=== PATIENT | male | born 1950 | race Caucasian/White ===

== ENCOUNTER → 2018-06-16 | Outpatient (CLI) | payer OTHER ==
[~2018-06-16] MED LIST: AMLO10TA3 PO; ASPI81TA28 PO; ATOR-22 PO; LOSA1TAB38 PO; METO25TA3 PO; SILD100T PO
--- NOTE | 2018-06-16 15:35 | DIAGNOSTIC IMAGING REPORT ---
CHEST 2 VIEWS ROUTINE CLINICAL HISTORY: Z01.818 preoperative evaluation COMPARISON STUDY: 09/25/2008 FINDINGS: Chronic granulomatous change. Mild emphysematous change. No acute abnormalities identified. Diaphragms are smooth but slightly flattened. IMPRESSION: Chronic change. No acute process. The above report was generated using voice recognition software. It may contain grammatical, syntax or spelling errors. Electronically signed by: Norm Trinidad M.D. 06/16/2018 3:33 PM Dictated Date/Time: 06/16/2018 3:32 PM
== END | disposition home or self-care (01) ==
LOC: C.RAD1850 15:13
PROVIDERS: ATTEND Family Medicine
DX: Z01.818 Encounter for other preprocedural examination (principal)

== ENCOUNTER 2018-07-12 10:29 | Inpatient (IN) | payer OTHER ==
[2018-06-17 08:06] VITALS: BMI 31.0
[2018-06-24 09:39] VITALS: BMI 31.0
--- NOTE | 2018-06-24 10:11 | PAT Medication Instructions ---
Service Date Jun 24, 2018. Current Home Medication List Amlodipine (Norvasc), 10 MG PO HS Aspirin (Aspirin Ec), 81 MG PO QAM Atorvastatin (Lipitor), 1 TAB PO HS Losartan Potassium (Cozaar), 1 TAB PO QAM Metoprolol Succ (Toprol Xl) (Toprol-Xl), 25 MG PO BID Sildenafil Citrate (Viagra), 1 TAB PO prn Medication Instructions For Your Scheduled Surgery -Check with your surgeon for instructions: Aspirin (Aspirin Ec), 81 MG PO QAM - Hold the following medications the morning of surgery: Losartan Potassium (Cozaar), 1 TAB PO QAM Sildenafil Citrate (Viagra), 1 TAB PO prn - Take the following medications the morning of surgery with a sip of water: Metoprolol Succ (Toprol Xl) (Toprol-Xl), 25 MG PO BID - Take the following medications as scheduled the night before surgery: Amlodipine (Norvasc), 10 MG PO HS Atorvastatin (Lipitor), 1 TAB PO HS Metoprolol Succ (Toprol Xl) (Toprol-Xl), 25 MG PO BID Sildenafil Citrate (Viagra), 1 TAB PO prn (if needed) If you have any questions please call us at [phone] or [phone] or [phone]
[2018-06-24 11:06] LABS: BASO % 0.3 %; BASO ABS # 0.02 K/uL (0-0.2); EOS % 1.5 %; HEMATOCRIT 38.1 % (42-52); HEMOGLOBIN 13.2 g/dL (14.0-18.0); IG# 0.04 K/uL (0.00-0.02); LYMPH % 20.8 %; LYMPH ABS # 1.36 K/uL (1.2-3.4); MEAN CORPUSCULAR HEMOGLOBIN 30.5 pg (25-34); MEAN CORPUSCULAR HGB CONC 34.6 g/dl (32-36); MEAN PLATELET VOLUME 11.1 fL (7.4-10.4); MONO % 7.2 %; MONO ABS # 0.47 K/uL (0.11-0.59); NEUT % 69.6 %; NEUT ABS # 4.56 K/uL (1.4-6.5); PLATELET COUNT 214 K/uL (130-400); RED CELL DISTRIBUTION WIDTH CV 13.4 % (11.5-14.5); WHITE BLOOD COUNT 6.55 K/uL (4.8-10.8)
[~2018-07-12] VITALS: Ht 177.8 cm; Wt 97.3 kg
[2018-07-12] VITALS (7 sets, daily range): BP systolic 108–150; BP diastolic 67–96; PULSE 65–84; TEMP 36.4–36.8; O2SAT 93–99; Ht 177.8 cm; Wt 97.3 kg
[~2018-07-12 10:29] MED LIST changes: +ATROPINE SULFATE 0.1 MG/ML 5ML SYR IV PRN; +CEFAZOLIN 2000MG IV PUSH 15 ML IV SCH; +EpHEDrine SULFATE INJ 50 MG/ML AMP IV PRN; +HEPARIN SOD 5000 UNIT/0.5 ML CARP SQ SCH; +HYDROmorphone INJ 2 MG/ML SYR/VIAL IV PRN; +LACTATED RINGER'S 1000ML 1,000 ML IV SCH; +ONDANSETRON INJ 2 MG/ML 2 ML VIAL IV PRN; +PHENYLEPHRINE 100MCG/ML 5ML SYR IV PRN
[2018-07-12] MEDS ORDERED: FAMO20TA11 PO (10:56)
--- NOTE | 2018-07-12 11:16 | History & Physical Bridge Note ---
H&P Re-Evaluation Bridge Note: I have examined the patient, reviewed the History & Physical and in the interval since the performance of the History & Physical I have noted the following changes of clinical significance: No changes noted
[2018-07-12] MEDS ORDERED: BUPIVACAINE 0.5 % 5 MG/1 ML PF 10ML VIAL ONE (11:37)
[2018-07-12] MEDS ORDERED: MIDAZOLAM HCL 1 MG/ML 2ML VIAL ONE (11:38)
[2018-07-12] MEDS ORDERED: NEOSTIGMINE METHYLSULFATE 5 MG/5 ML SYR ONE (11:38)
[2018-07-12] MEDS ORDERED: FENTANYL CITRATE INJ 50 MCG/1 ML 2 ML VIAL ONE (11:38)
[2018-07-12] MEDS ORDERED: LIDOCAINE HCL 2% 2 ML VIAL (20MG/ML) ONE (11:38)
[2018-07-12] MEDS ORDERED: HYDROmorphone INJ 2 MG/ML SYR/VIAL ONE (11:38)
[2018-07-12] MEDS ORDERED: ONDANSETRON INJ 2 MG/ML 2 ML VIAL ONE ×2 (11:38→14:38)
[2018-07-12] MEDS ORDERED: DEXAMETHASONE SOD INJ 4 MG/ML VIAL ONE (11:38)
[2018-07-12] MEDS ORDERED: GLYCOPYRROLATE INJ 0.2 MG/ML VIAL ONE ×2 (11:38→14:38)
[2018-07-12] MEDS ORDERED: PROPOFOL IV EMULSION 10 MG/ML 20 ML VIAL ONE (11:38)
[2018-07-12] MEDS ORDERED: BELLADONNA/OPIUM SUPP 60 MG SUPP PR ONE ×2 (12:25→13:34)
[2018-07-12] MEDS ORDERED: ACETAMINOPHEN 1000 MG/100 ML IV IV ONE (13:33)
[2018-07-12] MEDS ORDERED: KETAMINE HCL INJ 50 MG/ML 10 ML VIAL ONE (13:33)
[2018-07-12] MEDS ORDERED: PHENYLEPHRINE 100MCG/ML 5ML SYR ONE (14:38)
[2018-07-12] MEDS ORDERED: FLOSEAL HEMOSTATIC MATRIX 10ML TOP ONE (14:39)
[2018-07-12] MEDS ORDERED: ROCURONIUM BROMIDE 10 MG/ML 5 ML VIAL ONE (14:52)
[2018-07-12] MEDS ORDERED: EpHEDrine SULFATE 50MG/5ML SYR ONE (15:09)
[2018-07-12] MEDS ORDERED: ONDANSETRON INJ 2 MG/ML 2 ML VIAL IV PRN (15:45)
[2018-07-12] MEDS ORDERED: KETOROLAC TROMETHAMINE 15 MG/ML VIAL IV. PRN (15:45)
[2018-07-12] MEDS ORDERED: MoRPHine SULFATE 2 MG/ML CARP IV PRN (15:45)
[2018-07-12] MEDS ORDERED: ACETAMINOPHEN 325 MG TAB PO PRN (15:45)
[2018-07-12] MEDS ORDERED: MoRPHine SULFATE 4 MG/ML 1 ML CARP\\VIAL IV PRN (15:45)
[2018-07-12] MEDS ORDERED: ACETAMINOPHEN/CODEINE 300/30MG TAB PO PRN (15:45)
--- NOTE | 2018-07-12 15:45 | [facility] Operative Report ---
Operative Report Operative Date Jul 12, 2018. Pre-Operative Diagnosis Prostate cancer Post-Operative Diagnosis Prostate cancer Procedure(s) Performed Robot Assisted Laparoscopic Radical Retropubic Prostatectomy with lymph node dissection Surgeon Dr. Vicente Campuzano MD [employer] Surgeon(s) Abdiel Eddy PA-C Estimated Blood Loss 100ml Specimens Permanent Specimens A. Romelia-prostatic fat B. Right pelvic lymph node C. Left pelvic lymph node D. Prostate and seminal vessicles E. Bladder neck margin Anesthesia Type General Complication(s) none Disposition yes Recovery Room / PACU Description of Procedure The patient was identified in the preoperative holding area, appropriate informed consents were reviewed and completed, and he was transported to the operating suite. Subcutaneous heparin was administered in the pre-operative holding area. Upon arrival in the operating suite, he received appropriate antibiotics and general anesthesia. He was positioned in dorsal lithotomy, a B& O suppository was inserted after digital rectal exam, and he was prepped and draped in standard fashion. A Jones catheter was inserted in the sterile field. There was some challenge advancing the catheter, so an 18F coude catheter was used. A Veress needle was passed per umbilicus with uniform insufflation of the abdomen to 15mmHg. He was placed in steep Trendelenburg position. A periumbilical incision was then made to accommodate a 12mm Visiport with 10mm 0degree laparoscope. Inspection of the abdomen was carried out, and there was no evidence of traumatic entry or injury secondary to the Veress needle. After confirming a clear anterior abdominal wall, ports were subsequently placed in standard robotic prostatectomy fashion without incident. To begin the robotic portion of the case, the left lateral aspect of the sigmoid was mobilized off of the left pelvic side wall to allow the pouch of Alfredo to be appropriately visualized. The medial umbilical ligaments were then controlled with bipolar electrocautery just inferior to the umbilicus. Following cauterization, they were divided utilizing monopolar cautery. A peritoneal incision was carried from this location to the medial aspect of the internal inguinal rings bilaterally with care to avoid opening through the ring. This incision was concluded when the vas deferens was reached. Dissection of the bladder and prostate off of the posterior aspect of the pubic arch was completed allowing full visualization of the prostate. The fat overlying the prostate was removed en bloc and passed off the table as a specimen labeled "periprostatic fat". The endopelvic fascia was cleared during this portion of the procedure, and subsequently opened - first on the right and then the left. The incision through the endopelvic fascia began near the prostate-bladder junction and was carried to the apex with extreme care to preserve all lateral levator musculature as well as the periurethral musculature and sphincter complex. The puboprostatic ligaments were thinned slightly bilaterally before placing a 0-Vicryl figure of 8 stitch around the DVC. The lymph node dissection was then conducted. External iliac vessels were identified on the pelvic side wall. The packet of fat and lymphatic tissue that resides just under the iliac vein was elevated and off of the vein with a split and roll technique. I then performed the same procedure around the iliac artery. The packet was dissected laterally to the circumflex vein and distally to the obturator nerve which was preserved. The proximal aspect of the packet was carried towards the bifurcation of the iliac vessels. A combination of monopolar and bipolar cautery were used to assist with control. The same procedure was conducted on the contralateral side. After completing the dissection, the packets were collected and passed off of the table as specimens labeled "pelvic lymph nodes". My attention then returned to the prostate, with identification of the bladder neck aided by gentle traction on the Jones catheter and lateral to medial pressure at the presumed level of the bladder neck with the robotic instruments. An anterior cystotomy was made, the Jones balloon deflated and the catheter guided through the incision to allow anterior retraction. I attempted to preserve maximal bladder neck musculature as I circumferentially dissected around the bladder neck. After incision through the posterior aspect of the mucosa, the dissection was carried through detrusor muscle until the bilateral ampullae of the vasa were identified. These were elevated and dissected for approximately 4 cm before being transected. I then progressed to dissect the left side seminal vesicle and then the right-sided seminal vesicle. Of note the dissection of the SVs was relatively unremarkable without a significant inflammatory effect around the SVs. Following dissection of the SVs , the prostate was elevated and performed a posterior dissection. The left side dissected far easier than the right side, but I was able to complete a full posterior dissection. An incision in the lateral prostatic fascia was then made bilaterally to facilitate control of the vascular pedicles. The pedicles were skeletonized and controlled with a combination of bipolar electrocautery and the vessel sealer device, as the patient's preoperative pathology suggests high-grade disease with high risk for extraprostatic extension and perineural invasion. The apical attachments of the prostate were remaining at that stage. The DVC was divided with bipolar electrocautery. Romelia-prostatic tissue incised with sharp dissection and monopolar cautery. Maximal urethral length was preserved before dividing the urethra sharply. The prostate was entirely freed at that point, and collected in an EndoCatch bag before being moved out of the field of vision. Hemostasis was confirmed and anastomosis of the bladder and urethra was completed utilizing a double armed V- Lock stitch. A new Jones catheter was inserted and the anastomosis tested with irrigation. There was no evidence of leak. FloSeal coagulant was placed around the anastomosis. A Jose style stitch was placed bilaterally to functionally marsupialize the lymph node dissection. The robot was undocked, the specimen extracted through expansion of the romelia- umbilical camera port. The fascia was closed with a series of 0-PDS figure of 8 stitches. The right accounts receivable assistant port was closed in two layers - with a figure of 8 0-Vicryl to reapproximate the fascia followed by 4-0 Monocryl to close the skin. Monocryl was used to close all other skin incisions. All wounds were dressed with Dermabond. The case was concluded and the patient taken to the PACU in stable condition. Of note, Abdiel Eddy was present and scrubbed as an accounts receivable assistant throughout the case. I attest to the content of the Intraoperative Record and any orders documented therein. Any exceptions are noted below.
--- NOTE | 2018-07-12 16:27 | Anesthesiology Progress Note ---
Anesthesia Post Op Note Date & Time Jul 12, 2018 at 16:27 Vital Signs Pain Intensity: 0 Vital Signs Past 12 Hours Date Time Temp Pulse Resp B/P (MAP) Pulse Ox O2 Delivery O2 Flow Rate FiO2 07/12/18 16:15 69 14 135/93 99 Oxymask 10 07/12/18 16:05 81 15 173/99 100 Oxymask 10 07/12/18 15:55 36.0 78 19 154/95 94 Oxymask 10 07/12/18 10:58 36.6 65 16 150/96 97 Room Air Notes Mental Status: alert / awake / arousable, participated in evaluation Pt Amnestic to Procedure: Yes Nausea / Vomiting: adequately controlled Pain: adequately controlled Airway Patency, RR, SpO2: stable & adequate BP & HR: stable & adequate Hydration State: stable & adequate Anesthetic Complications: no major complications apparent
[2018-07-12 17:17] LABS: BASO % 0.1 %; BASO ABS # 0.01 K/uL (0-0.2); HEMATOCRIT 40.2 % (42-52); HEMOGLOBIN 13.7 g/dL (14.0-18.0); IG# 0.08 K/uL (0.00-0.02); LYMPH % 5.5 %; LYMPH ABS # 0.68 K/uL (1.2-3.4); MEAN CELL VOLUME 89.5 fL (80-100); MEAN CORPUSCULAR HEMOGLOBIN 30.5 pg (25-34); MEAN PLATELET VOLUME 10.6 fL (7.4-10.4); MONO % 1.2 %; MONO ABS # 0.15 K/uL (0.11-0.59); NEUT % 92.6 %; NEUT ABS # 11.44 K/uL (1.4-6.5); PLATELET COUNT 184 K/uL (130-400); RED CELL DISTRIBUTION WIDTH CV 13.5 % (11.5-14.5); RED CELL DISTRIBUTION WIDTH SD 44.1 fL (36.4-46.3); WHITE BLOOD COUNT 12.36 K/uL (4.8-10.8)
[2018-07-12 17:19] LABS: MEAN CORPUSCULAR HGB CONC 34.1 g/dl (32-36)
[2018-07-12 17:46] LABS: CALCIUM 8.9 mg/dl (8.5-10.1); CREATININE 1.52 mg/dl (0.60-1.40); POTASSIUM 3.7 mmol/L (3.5-5.1)
[2018-07-12] MEDS: LACTATED RINGER'S 1000ML 1,000 ML IV SCH (19:25)
[2018-07-12] MEDS: AMLODIPINE BESYLATE 5 MG TAB PO SCH (22:09)
[2018-07-12] MEDS: CEFAZOLIN IV 1,000 MG in SYRINGE 0 ML IV SCH (22:09)
[2018-07-12] MEDS: METOPROLOL SUCC 25MG EXT REL TAB PO SCH (22:09)
[2018-07-12] MEDS: ATORVASTATIN 20 MG TAB PO SCH (22:10)
[2018-07-13] VITALS (8 sets, daily range): BP systolic 130–152; BP diastolic 70–86; PULSE 65–72; TEMP 36.6–36.8; O2SAT 93–96
[2018-07-13] MEDS: LACTATED RINGER'S 1000ML 1,000 ML IV SCH ×3 (03:14→18:45)
[2018-07-13] MEDS: ACETAMINOPHEN/CODEINE 300/30MG TAB PO PRN ×4 (05:17→21:04)
[2018-07-13] MEDS: CEFAZOLIN IV 1,000 MG in SYRINGE 0 ML IV SCH (05:32)
[2018-07-13 05:34] LABS: HEMATOCRIT 35.5 % (42-52); HEMOGLOBIN 11.9 g/dL (14.0-18.0); IG# 0.04 K/uL (0.00-0.02); LYMPH % 6.2 %; MEAN CORPUSCULAR HEMOGLOBIN 29.8 pg (25-34); MEAN CORPUSCULAR HGB CONC 33.5 g/dl (32-36); MONO % 9.5 %; MONO ABS # 1.23 K/uL (0.11-0.59); NEUT ABS # 10.93 K/uL (1.4-6.5); PLATELET COUNT 194 K/uL (130-400); RED CELL DISTRIBUTION WIDTH CV 13.5 % (11.5-14.5); RED CELL DISTRIBUTION WIDTH SD 44.2 fL (36.4-46.3)
[2018-07-13 06:00] LABS: CALCIUM 8.6 mg/dl (8.5-10.1); CREATININE 1.17 mg/dl (0.60-1.40); POTASSIUM 4.1 mmol/L (3.5-5.1)
[2018-07-13] MEDS ORDERED: PNEUMOCOCCAL POLYSACCHARIDES 25 MCG/0.5 ML VIAL/SYR IM. ONE (08:00)
[2018-07-13] MEDS ORDERED: PNEUMOCOCCAL ADMINISTRATION CHARGE ONE (08:00)
[2018-07-13] MEDS ORDERED: DOCU-94 PO (08:12)
[2018-07-13] MEDS ORDERED: CIPR-255 PO (08:12)
[2018-07-13] MEDS ORDERED: ACET300T3 PO (08:12)
--- NOTE | 2018-07-13 08:16 | Discharge Instructions ---
Discharge Instructions Date of Service Jul 13, 2018. Admission Reason for Admission: Prostate Cancer Discharge Discharge Diagnosis / Problem: prostate ca Discharge Goals Goal(s): Decrease discomfort, Improve function, Increase independence, Improve disease control, Prevent Disease Progression Activity Recommendations Activity Limitations: per Instructions/Follow-up section Lifting Limitations: no more than 25 pounds, until after follow-up appointment Exercise/Sports Limitations: gradually increase as tolerated May Resume Sexual Activity: when tolerated Shower/Bathe: no limitations Driving or Machine Use: when you are off of pain meds and feel you can safely control your vehicle . Instructions / Follow-Up Instructions / Follow-Up PLease keep your previously scheduled appointment for catheter removal. It is not unusual to have some urine leak around the catheter. You also may have some fluid leak from the other incision sites. This is normal and will resolve with time. Swelling of the scrotum is very common after this surgery, it also will improve with time, but can be quite impressive when it occurs. Current Hospital Diet Patient's current hospital diet: Clear Liquid Diet Discharge Diet Recommended Diet: Regular Diet Procedures Procedures Performed: Robot Assisted Laparoscopic Radical Retropubic Prostatectomy with lymph node dissection Pending Studies Studies pending at discharge: no Medical Emergencies . Who to Call and When: Medical Emergencies: If at any time you feel your situation is an emergency, please call 911 immediately. . Non-Emergent Contact Non-Emergency issues call your: Urologist Call Non-Emergent contact if: you have a fever, temperature is above 101.5, your pain is not controlled, your pain is worsening . . "Provider Documentation" section prepared by Jamal Nix. . [place] Drug Monitoring Program Search Results: patient reviewed within database, no issues identified
[2018-07-13] MEDS: LOSARTAN POTASSIUM 50 MG TAB PO SCH (08:41)
[2018-07-13] MEDS: METOPROLOL SUCC 25MG EXT REL TAB PO SCH ×2 (08:41→20:59)
[2018-07-13] MEDS: FAMOTIDINE 20 MG TAB PO SCH (09:19)
--- NOTE | 2018-07-13 10:42 | Progress Note ---
Progress Note Date of Service Jul 13, 2018. Progress Note S: doing very well - minimal pain - has been OOB and ambulating - clear urine - no nausea/tolerating diet O: VSS - NAD - AAOx3 - incisions appropriate - carrillo clear labs stable A/P: POD #1 s/p RALP with LND - ambulate - advance diet - carrillo teaching - possible d/c home today or tomorrow pending progress this AM
--- NOTE | 2018-07-13 12:05 | Clinical Documentation Query ---
CLINICAL DOCUMENTATION QUERY 68 yo male admitted for prostate cancer and s/p resection. Patient's creatinine baseline was 1.19 and trended up to 1.52. Currently, creatinine trended back down to 1.17. In your clinical opinion is this patient being managed for: ( ) Acute kidney failure, resolved ( x) Not Agree - this is a transient shift secondary to physical stresses of surgery - no true renal failure as evidenced by complete resolution within 24hrs ( ) Other explanation of clinical findings (No explanation is considered a No Response) ( ) Unable to determine ( ) Need to Discuss (Phone CDS or qliq) (No discussion is considered a No Response) The medical record reflects the following clinical findings, treatment, and risk factors. Clinical Indicators: As above Treatment: IV hydration, serial PRPs Risk Factors: Prostate cancer Please clarify and document your clinical opinion in the progress notes and discharge summary. Terms such as "probable", "suspected", "likely", "questionable", "possible", or "still to be ruled out" are acceptable. IF IN AGREEMENT, YOU MUST DOCUMENT ABOVE DIAGNOSTIC STATEMENT IN DAILY PROGRESS NOTES AND DISCHARGE SUMMARY. This document is not part of the patient's record. Thank You, Sosa Valenzuela RN, MSN [phone]
[2018-07-13] MEDS: ATORVASTATIN 20 MG TAB PO SCH (21:24)
[2018-07-13] MEDS: AMLODIPINE BESYLATE 5 MG TAB PO SCH (21:24)
[2018-07-14] MEDS: LACTATED RINGER'S 1000ML 1,000 ML IV SCH ×2 (02:42→09:45)
[2018-07-14 06:59] VITALS: BP 155/87; PULSE 63; TEMP 36.8; O2SAT 93
[2018-07-14] MEDS: ACETAMINOPHEN/CODEINE 300/30MG TAB PO PRN (07:49)
[2018-07-14] MEDS: LOSARTAN POTASSIUM 50 MG TAB PO SCH (09:10)
[2018-07-14] MEDS: FAMOTIDINE 20 MG TAB PO SCH (09:10)
[2018-07-14] MEDS: METOPROLOL SUCC 25MG EXT REL TAB PO SCH (10:19)
--- NOTE | 2018-07-19 08:36 | Discharge Summary ---
Discharge Summary Date of Service Jul 19, 2018. Admission Date/Reason Jul 12, 2018 at 15:49 Prostate Cancer. Discharge Date/Disposition Jul 13, 2018 Home Diagnosis Principal Diagnosis: Prostate Cancer Procedure(s) Performed Robotic prostatectomy with lymph node dissection Medication Reconciliation New Medications: Acetaminophen/Codeine (Tylenol W/Codeine #3) 300 Mg/30 Mg Tab 2 TAB PO Q8 PRN for Pain, #30 TAB Ciprofloxacin Hcl (Cipro) 500 Mg Tab 500 MG PO BID, #6 TAB Docusate Sodium (Colace) 100 Mg Cap 1 CAP PO BID for 30 Days, #60 CAP 2 Refills Continued Medications: Amlodipine (Norvasc) 10 Mg Tab 10 MG PO HS, TAB Aspirin (Aspirin Ec) 81 Mg Tab 81 MG PO QAM Atorvastatin (Lipitor) 20 Mg Tab 1 TAB PO HS for 30 Days, TAB 5 Refills Famotidine (Pepcid) 20 Mg Tab 20 MG PO, TAB Losartan Potassium (Cozaar) 100 Mg Tab 1 TAB PO QAM for 30 Days, #30 TAB 5 Refills Metoprolol Succ (Toprol Xl) (Toprol-Xl) 25 Mg Tabcr 25 MG PO BID, #30 TAB Sildenafil Citrate (Viagra) 100 Mg Tab 1 TAB PO prn, #6 TAB 11 Refills Admission Physical Exam As per Admitting History & Physical. Hospital Course Patient admitted for a robotic prostatectomy - details of the procedure as dictated previously in my operative report - in summary, he tolerated the procedure very well - he was in stable condition overnight with appropriate urine output and stable labs - he was subsequently discharged home with a carrillo catheter - he was in stable condition at the time of discharge Discharge Instructions Please refer to the electronic Patient Visit Report (Discharge Instructions) for additional information.
== END 2018-07-14 16:30 | disposition home or self-care (01) | DRG 708 ==
LOC: C.ACU 10:29 → C.MSN 15:49 → ENRESERV 16:20
PROVIDERS: ADMIT Urology; ATTEND Urology
PROC: 0VT04ZZ Resection of Prostate, Percutaneous Endoscopic Approach (ICD-10-PCS; principal; 2018-07-12 12:00)
PROC: 07BC4ZX Excision of Pelvis Lymphatic, Percutaneous Endoscopic Approach, Diagnostic (ICD-10-PCS; principal; 2018-07-12 12:00)
PROC: 0VT34ZZ Resection of Bilateral Seminal Vesicles, Percutaneous Endoscopic Approach (ICD-10-PCS; principal; 2018-07-12 12:00)
PROC: 8E0W8CZ Robotic Assisted Procedure of Trunk Region, Via Natural or Artificial Opening Endoscopic (ICD-10-PCS; principal; 2018-07-12 12:00)
DX: C61 Malignant neoplasm of prostate (principal); N40.1 Benign prostatic hyperplasia with lower urinary tract symptoms; E78.5 Hyperlipidemia, unspecified; I10 Essential (primary) hypertension; Z79.82 Long term (current) use of aspirin